=== PATIENT | female | born 1965 | race Caucasian/White ===

== ENCOUNTER 2024-01-05 14:02 | Emergency (ER) | payer MEDICARE ==
--- NOTE | 2024-01-05 15:51 | ED ---
Abdominal Pain HPI - General Source: patient, RN notes reviewed Mode of arrival: ambulatory Limitations: no limitations - History of Present Illness MD Complaint: abdominal pain <Narda Leahy - Last Filed: 01/05/24 16:47> - General Source: patient, family, RN notes reviewed Mode of arrival: ambulatory Limitations: no limitations <Judit Escobedo - Last Filed: 01/05/24 21:26> - General Chief Complaint: Abdominal Pain Stated Complaint: Abd pain Time Seen by Provider: 01/05/24 15:49 - History of Present Illness Initial Comments: Quick Note: This is a 58-year-old female who presents to the emergency department for abdominal pain. She has been dealing with problems related to her gallbladder for the last several months. She had an abnormal CT scan in [place] last month that demonstrated gallstones and wall thickening. She then had imaging yesterday and was told that it was very irregular and she should come to the emergency department. This was also done in [place]. Reports persistent pain and nausea. (Narda Leahy) 58-year-old female presenting to the ER with a chief complaint of epigastric abdominal pain. She reports pain has been ongoing since November and has progressively worsening in intensity. She has been seen at [facility] yesterday and underwent ultrasound and HIDA scans. She reports scan showed gallstones and irregular wall thickening. She was reporting associated persistent nausea and vomiting. She has not been able to take anything for symptoms as she is unable to keep anything down. She denies any fevers or chills. Denies any diarrhea or urinary complaints. No other complaints. (Judit Escobedo) - Related Data Allergies Allergy/AdvReac Type Severity Reaction Status Date / Time No Known Allergies Allergy Verified 01/05/24 14:06 Review of Systems ROS Other: All systems not noted in ROS Statement are negative. <Narda Leahy - Last Filed: 01/05/24 16:47> ROS Other: All systems not noted in ROS Statement are negative. <Judit Escobedo - Last Filed: 01/05/24 21:26> ROS Statement: Those systems with pertinent positive or pertinent negative responses have been documented in the HPI. Past Medical History Past Medical History: Diabetes Mellitus Past Surgical History: No Surgical Hx Reported Smoking Status: Current every day smoker Past Alcohol Use History: None Reported Past Drug Use History: None Reported <Narda Leahy - Last Filed: 01/05/24 16:47> General Exam Limitations: no limitations <Narda Leahy - Last Filed: 01/05/24 16:47> Limitations: no limitations General appearance: alert, in no apparent distress Respiratory exam: Present: normal lung sounds bilaterally. Absent: respiratory distress, wheezes, rales, rhonchi, stridor Cardiovascular Exam: Present: regular rate, normal rhythm, normal heart sounds. Absent: systolic murmur, diastolic murmur, rubs, gallop, clicks GI/Abdominal exam: Present: soft, tenderness (Epigastric), normal bowel sounds Back exam: Present: normal inspection Neurological exam: Present: alert, oriented X3, CN II-XII intact Skin exam: Present: warm, dry, intact, normal color. Absent: rash <Judit Escobedo - Last Filed: 01/05/24 21:26> - General Exam Comments Initial Comments: Visual Physical Exam Vital signs reviewed General: Well-appearing, nontoxic, no acute distress. Head: Normocephalic, atraumatic Eyes: PERRLA, EOMI ENT: Airway patent Chest: Nonlabored breathing Skin: No visual rash, normal skin tone Neuro: Alert and oriented 3 Musculoskeletal: No gross abnormalities (Narda Leahy) Course <Judit Escobedo - Last Filed: 01/05/24 21:26> Vital Signs 01/05/24 01/05/24 01/05/24 14:03 17:18 19:00 Temperature 98 F 98.4 F Pulse Rate 95 97 85 Respiratory 18 17 16 Rate Blood Pressure 160/92 135/75 142/89 O2 Sat by Pulse 99 97 97 Oximetry - Reevaluation(s) Reevaluation #1: 01/05/24 20:11 Case discussed with on-call general surgery, Dr. Rocha who advises on transfer for GI ERCP evaluation. 01/05/24 21:20 Case discussed with IRVING King who refused transfer. 01/05/24 21:[address] Evaristo Mederos who accepts transfer. (Judit Escobedo) Medical Decision Making - Lab Data Result diagrams: 01/05/24 15:52 <Narda Leahy - Last Filed: 01/05/24 16:47> - Lab Data Result diagrams: 01/05/24 15:52 01/05/24 17:41 - EKG Data -: EKG Interpreted by Me - Radiology Data Radiology results: report reviewed, image reviewed <Judit Escobedo - Last Filed: 01/05/24 21:26> - Medical Decision Making I performed the QuickNote portion of this chart. Signed Narda Leahy PA-C. (Narda Leahy) Was pt. sent in by a medical professional or institution ([facility], [facility], urgent care, hospital, or prison...) When possible be specific @ -No Did you speak to anyone other than the patient for history (EMS, parent, family, police, friend...)? What history was obtained from this source @ -No Did you review nursing and triage notes (agree or disagree)? Why? @ -I reviewed and agree with nursing and triage notes Were old charts reviewed (outside hosp., previous admission, EMS record, old EKG, old radiological studies, urgent care reports/EKG's, prison records)? Report findings @ -No old charts were reviewed Differential Diagnosis (chest pain, altered mental status, abdominal pain women, abdominal pain men, vaginal bleeding, weakness, fever, dyspnea, syncope, headache, dizziness, GI bleed, back pain, seizure, CVA, palpatations, mental health, musculoskeletal)? @ -Differential Abdominal Pain Women: Appendicitis, Cholecystitis, div erticulosis, ischemic bowel, pancreatitis, hepatitis, UTI, gastroenteritis, AAA, incarcerated hernia, bowel obstruction, constipation, inflammatory bowel, hepatitis, peptic ulcer disease, splenic infarction, perforated viscus, vulvitis, ovarian torsion, PID, kidney stone, placenta abruption, this is not meant to be an all-inclusive list EKG interpreted by me (3pts min.). @ -As above X-rays interpreted by me (1pt min.). @ -None done CT interpreted by me (1pt min.). @ -None done U/S interpreted by me (1pt. min.). @ -Gallbladder ultrasound showing common bile duct thickening with internal mary ris possibly representing choledocholithiasis. Common bile duct measuring 7mm. There is also gallbladder wall thickening measuring 6 mm. Cholelithiasis. Hepatic steatosis. Evidence of adenomyomatosis. What testing was considered but not performed or refused? (CT, X-rays, U/S, labs)? Why? @ -None What meds were considered but not given or refused? Why? @ -None Did you discuss the management of the patient with other professionals (professionals i.e. Dr., PA, [facility], lab, RT, psych nurse, oncology social worker, vocational nursing instructor, teacher, nuclear medicine officer, case management director)? Give summary @ -Yes, case discussed with traffic control flagger general surgery, Dr. Rocha, who advised on transfer for GI ERCP evaluation. Was smoking cessation discussed for >3mins.? @ -No Was critical care preformed (if so, how long)? @ -No Were there social determinants of health that impacted care today? How? (Homelessness, low income, unemployed, alcoholism, drug addiction, transportation, low edu. Level, literacy, decrease access to med. care, long-term, rehab)? @ -No Was there de-escalation of care discussed even if they declined (Discuss DNR or withdrawal of care, Hospice)? DNR status @ -No What co-morbidities impacted this encounter? (DM, HTN, Smoking, COPD, CAD, Cancer, CVA, ARF, Chemo, Hep., AIDS, mental health diagnosis, sleep apnea, morbid obesity)? @ -DM Was patient admitted / discharged? Hospital course, mention meds given and route, prescriptions, significant lab abnormalities, going to OR and other per tinent info. @ -Transferred. 58 year old female presenting to the ER with a chief complaint of nausea and epigastric abdominal pain. History and physical exam completed. Vitals remained stable throughout ER stay. Exam remarkable for epigastric/left upper quadrant abdominal pain. Normal bowel sounds. No rebound or guarding. Laboratory studies obtained unremarkable. Total bilirubin 0.7, AST 33, ALT 29, alk phos 71. Gallbladder ultrasound showing common bile duct thickening at 0.7 cm with internal debris present. There is also gallbladder wall thickening at 6 mm. Patient received symptomatic control in the ER with IV fluids, Toradol, Dilaudid, Zofran and Reglan. Case discussed with on-call general surgery, Dr. Rocha, who advised on transfer for GI evaluation due to concern of choledocholithiasis. Transfer considered at that time for GI consult to rule out choledocholithiasis. Case discussed with [facility], Dr. Loera who accepts transfer. Patient started on IV Zosyn. Blood cultures were obtained prior to initiation of antibiotics. Patient is agreeable for transfer. Patient transferred via EMS in stable condition to [facility] for further evaluation and treatment. Case discussed with ED attending, Dr. Delgado. Undiagnosed new problem with uncertain prognosis? @ -No Drug Therapy requiring intensive monitoring for toxicity (Heparin, Nitro, Insulin, Cardizem)? @ -No Were any procedures done? @ -No Diagnosis/symptom? @ -Cholecystitis rule out choledocholithiasis Acute, or Chronic, or Acute on Chronic? @ -Acute Uncomplicated (without systemic symptoms) or Complicated (systemic symptoms)? @ -Complicated Side effects of treatment? @ -No Exacerbation, Progression, or Severe Exacerbation? @ -No Poses a threat to life or bodily function? How? (Chest pain, [place], [place], pneumonia, PE, COPD, DKA, ARF, appy, cholecystitis, CVA, Diverticulitis, Homicidal, Suicidal, threat to staff... and all critical care pts) @ -Yes, choledocholithiasis can lead to sepsis which can lead to endorgan dysfunction. (Judit Escobedo) - Lab Data Lab Results 01/05/24 01/05/24 01/05/24 Range/Units 15:52 15:52 17:41 WBC 9.7 (3.8-10.6) k/uL RBC 5.21 (3.80-5.40) m/uL Hgb 15.0 (11.4-16.0) gm/dL Hct 47.4 H (34.0-46.0) % MCV 91.1 (80.0-100.0) fL MCH 28.8 (25.0-35.0) pg MCHC 31.6 (31.0-37.0) g/dL RDW 14.2 (11.5-15.5) % Plt Count 444 (150-450) k/uL MPV 7.4 Neutrophils % 70 % Lymphocytes % 21 % Monocytes % 4 % Eosinophils % 3 % Basophils % 0 % Neutrophils # 6.8 (1.3-7.7) k/uL Lymphocytes # 2.0 (1.0-4.8) k/uL Monocytes # 0.4 (0-1.0) k/uL Eosinophils # 0.3 (0-0.7) k/uL Basophils # 0.0 (0-0.2) k/uL Sodium 139 (137-145) mmol/L Potassium 4.2 (3.5-5.1) mmol/L Chloride 109 H (98-107) mmol/L Carbon Dioxide 26 (22-30) mmol/L Anion Gap 4 mmol/L BUN 7 (7-17) mg/dL Creatinine 0.56 (0.52-1.04) mg/dL Est GFR (CKD-EPI)AfAm >90 (>60 ml/min/1.73 sqM) Est GFR (CKD-EPI)NonAf >90 (>60 ml/min/1.73 sqM) Glucose 92 (74-99) mg/dL Plasma Lactic Acid Ronak 1.1 (0.7-2.0) mmol/L Calcium 9.6 (8.4-10.2) mg/dL Total Bilirubin 0.7 (0.2-1.3) mg/dL AST 33 (14-36) U/L ALT 29 (4-34) U/L Alkaline Phosphatase 71 (38-126) U/L Total Protein 7.3 (6.3-8.2) g/dL Albumin 4.3 (3.5-5.0) g/dL Amylase 46 (30-110) U/L Lipase 45 (23-300) U/L - EKG Data EKG Comments: EKG taken at 15: 52 showing a sinus rhythm no ST segment elevations or depressions. No T wave abnormalities. Normal axis. Ventricular rate 95, MD interval 160, QRS duration 68, QT/QTc 323/376 (Judit Escobedo) Disposition <Narda Leahy - Last Filed: 01/05/24 16:47> Time of Disposition: 21:23 - Out of Hospital Transfer - Req. Specs Out of Hospital Transfer - Requested Specifics: Other Emergency Center (GI consult [facility]) <Judit Escobedo - Last Filed: 01/05/24 21:26> Clinical Impression: Cholecystitis Disposition: OTHER INSTITUTION NOT DEFINED Condition: Stable Referrals: Delfino Lorenzana MD [Primary Care Provider] - 1-2 days
[2024-01-05 16:14] LABS: Basophils % (A) 0 %; Eosinophils # (A) 0.3 k/uL (0-0.7); Eosinophils % (A) 3 %; HCT 47.4 % (34.0-46.0); Lymphocytes % (A) 21 %; MCH 28.8 pg (25.0-35.0); MCHC 31.6 g/dL (31.0-37.0); MCV 91.1 fL (80.0-100.0); Mean Platelet Volume 7.4; Monocytes # (A) 0.4 k/uL (0-1.0); Monocytes % (A) 4 %; Neutrophils # (A) 6.8 k/uL (1.3-7.7); Neutrophils % (A) 70 %; Platelet Count 444 k/uL (150-450); RBC 5.21 m/uL (3.80-5.40); RDW 14.2 % (11.5-15.5); WBC 9.7 k/uL (3.8-10.6)
[2024-01-05 17:20] VITALS: TEMP 98.4
[2024-01-05] MEDS: SODIUM CHLORIDE 0.9% 1,000 ML IV STA (17:22)
[2024-01-05] MEDS: KETOROLAC 15 MG/ML 1 ML VIAL IVP STA (17:23)
[2024-01-05] MEDS: ONDANSETRON 4 MG/2 ML VIAL IVP STA ×2 (17:25→21:49)
[2024-01-05] MEDS: HYDROmorphone 0.5 MG/0.5 ML SYRINGE IVP STA (17:29)
[2024-01-05 18:14] LABS: ALT 29 U/L (4-34); African American GFR (CKD) >90 (>60 ml/min/1.73 sqM); Albumin 4.3 g/dL (3.5-5.0); Amylase 46 U/L (30-110); Anion Gap 4 mmol/L; Blood Urea Nitrogen 7 mg/dL (7-17); Calcium 9.6 mg/dL (8.4-10.2); Carbon Dioxide 26 mmol/L (22-30); Chloride 109 mmol/L (98-107); Glucose 92 mg/dL (74-99); Lipase 45 U/L (23-300); Non-African American GFR(CKD) >90 (>60 ml/min/1.73 sqM); Sodium 139 mmol/L (137-145); Total Bilirubin 0.7 mg/dL (0.2-1.3); Total Protein 7.3 g/dL (6.3-8.2)
[2024-01-05 18:26] LABS: AST 33 U/L (14-36); Alkaline Phosphatase 71 U/L (38-126); Potassium 4.2 mmol/L (3.5-5.1)
--- NOTE | 2024-01-05 18:54 | US ---
EXAMINATION TYPE: US gallbladder DATE OF EXAM: 01/05/2024 COMPARISON: 12/29/2023 CLINICAL INDICATION: Female, 58 years old with history of RUQ pain; RUQ pain. Nausea. States US done last week with gallstones TECHNIQUE: Grayscale and color Doppler imaging of the right upper quadrant was performed. FINDINGS: EXAM MEASUREMENTS: Liver Length: 19.2 cm Gallbladder Wall: 0.6 cm CBD: 0.7 cm Right Kidney: 10.9 x 4.5 x 4.6 cm INSULATION SPRAYER NOTES:Slightly limited due to overlying bowel gas Pancreas: Visualized portions appear slightly echogenic. Tail obscured by gas Liver: Hepatomegaly. Difficult to penetrate, increased echogenicity. Gallbladder: There are multiple gallstones seen within the gallbladder fundus and comet tail artifac t seen within the gallbladder neck. The anterior wall is thickened measuring 6mm. Evidence for sonographic Monterroso's sign: Yes CBD: Dilated Right Kidney: wnl IMPRESSION: 1. Common bile duct thickening with internal debris possibly representing choledocholithiasis. Corre late with MRCP. 2. Cholelithiasis. 3. Evidence of adenomyomatosis. 4. Hepatic steatosis. [facility], , 01/05/2024 6:51 PM
[2024-01-05] MEDS: METOCLOPRAMIDE 5 MG/ML 2 ML VIAL IVP STA (19:06)
[2024-01-05 19:10] VITALS: PULSE 85
[2024-01-05] MEDS: SODIUM CHLORIDE 0.9% 500 ML 500 ML IV STA (21:49)
[2024-01-05] MEDS: HYDROmorphone 1 MG/ML 1 ML SYRINGE IVP STA (21:49)
[2024-01-05] MEDS: PIPERACILLIN-TAZOBACTAM 3.375 GM in SODIUM CHLORIDE 0.9% 100 ML IVPB STA (21:49)
[2024-01-05 21:56] VITALS: BP 154/104; RESP 18
== END 2024-01-05 21:59 | disposition other institution (70) ==
LOC: MERGE 14:02 → EC 14:02
CPT/HCPCS: 36415; 76705; 80053; 82150; 83605; 83690; 85025; 93005; 96361; 96374; 96375; 96376; 99285